=== PATIENT | female | born 2000 | race Caucasian/White ===

== ENCOUNTER 2019-07-19 23:13 | Inpatient (IN) ==
[2019-07-20] MEDS ORDERED: miSOPROStoL 50 MCG TAB PO ONE ×2 (00:22→04:15)
[2019-07-20] MEDS ORDERED: OXYTOCIN 30 UNITS/500 ML BAG IV PRN ×3 (00:22→17:48)
[2019-07-20] MEDS: LACTATED RINGER'S 1,000 ML IV PRN ×3 (00:38→12:51)
[2019-07-20 00:46] LABS: Hematocrit (blood only) 32.5 % (37-47); Hemoglobin 11.5 g/dL (12.0-16.0); Mean Corpuscular Hemoglobin 33.7 pg (25-34); Mean Corpuscular Volume 95.3 fL (80-100); Mean Platelet Volume 10.2 fL (7.4-10.4); Platelet Count 319 K/uL (130-400); RDW Coefficient of Variation 13.6 % (11.5-14.5); RDW Standard Deviation 47.4 fL (36.4-46.3); Red Blood Count 3.41 M/uL (4.2-5.4); White Blood Count 6.06 K/uL (4.8-10.8)
[2019-07-20 01:00] LABS: Mean Corpuscular Hgb Conc 35.4 g/dL (32-36)
[2019-07-20] MEDS ORDERED: PENICILLIN G POTASSIUM 6 MU in DEXTROSE 5% 250 ML IV STA (01:03)
--- NOTE | 2019-07-20 01:04 | History and Physical Report ---
DATE OF ADMISSION: 07/20/2019 CHIEF COMPLAINT: Contractions, intrauterine at 41+ weeks gestation. HISTORY OF PRESENT ILLNESS: The patient is a 1, para 0. She has had an uneventful course. She is 41 weeks 3 days. She has missed a number of appointments. She has not been seen in the office in over 2 weeks. She is a relatively poor historian. She has also skipped other appointments at times, presently complaining of abdominal pain and contractions for about the past 24 hours. She called the answering service and was told to come to the hospital for evaluation. ALLERGIES: No known drug allergies. PAST SURGICAL HISTORY: No previous surgery. PAST MEDICAL HISTORY: No history of rheumatic fever, heart disease, heart murmur, diabetes, tuberculosis. SOCIAL HISTORY: No smoking, no alcohol intake. She is a [id number] person. FAMILY HISTORY: Mom is 40 in good health. Father 50 in good health. One brother and one sister in good health. REVIEW OF SYSTEMS: HEAD: No symptoms of frequent or severe headaches. EYES: No symptoms of blurred vision, double vision. EARS: No symptoms of frequent ear infection, difficulty hearing. NOSE: No symptoms of frequent nosebleeds, difficulty breathing through her nose. THROAT: No symptoms of frequent or severe sore throat, difficulty swallowing. RESPIRATORY SYSTEM: No history of asthma, chest pain, shortness of breath. PHYSICAL EXAMINATION: GENERAL: Well-developed, well-nourished, 19-year-old white female, alert, oriented x3 and cooperative in no acute distress, appears stated age. EYES: Conjunctivae are pink. Sclerae white, no evidence of jaundice. EARS: Had normal light reflex bilaterally. NOSE: Had normal mucosa. Septum is midline. There were no polyps. THROAT: Had no erythema or evidence of infection. Teeth are in good state of repair. HEART: Regular rhythm. S1, S2 are normal. BREASTS: Normal. ABDOMEN: Soft and nontender. Estimated weight of only about 7 pounds. PELVIC: Vertex presentation. Cervix posterior, about 90% effaced, 1.5 cm dilated. Membranes were bulging slightly. MUSCULOSKELETAL: Revealed no calf tenderness. IMPRESSIONS OF THIS CASE: The patient is a poor historian, is not reliable in keeping her visits, 41+ weeks gestation, post-term , early labor.
[2019-07-20 02:09] LABS: Appearance Urine Cloudy (Clear); Bacteria Urine Automated Negative (Negative); Bilirubin Urine Negative (Negative); Blood Urine 2+ (Negative); Color Urine Dark Yellow; Glucose Urine UA Trace (Negative); Ketones Urine Trace (Negative); Leukocyte Esterase Urine Trace (Negative); Nitrite Urine Negative (Negative); Protein Urine 4+ (Negative); RBC Urine Automated >30 /hpf (0-4); Specific Gravity Urine 1.033 (1.000-1.030); Urobilinogen Urine Negative (Negative); WBC Urine Automated >30 /hpf (0-5); pH Urine 6.5 (4.5-7.5)
[2019-07-20 02:24] LABS: Mucus Urine Present (None Prsent)
[2019-07-20 02:26] LABS: Cast Urine Automated 0 /lpf (0-5)
[2019-07-20] MEDS: PENICILLIN G POTASSIUM 3 MU in DEXTROSE 5% 100 ML IV PRN ×3 (05:01→12:57)
--- NOTE | 2019-07-20 08:49 | Obstetrical Progress Note ---
Date of Service July 20, 2019 Assessment & Plan Admission and Anticipated Discharge Date Admission Date: July 20, 2019 Subjective Doing well Induction for post dates Ctx -12mins on Cytotec CAT1 EFW by Clifford; 7-8lbs Results & Data ([facility]) Vital Signs (Past 12 Hours) Vital Signs Temp Pulse Resp BP 07/20/19 07:12 36.7 C 63 20 122/80 07/20/19 03:39 37.0 C 18 07/20/19 03:38 79 129/72 07/19/19 23:40 95 H 131/85 07/19/19 23:35 37.1 C 18
[2019-07-20] MEDS ORDERED: ATROPINE SULFATE 0.1 MG/ML 10ML SYR IV PRN (11:12)
[2019-07-20] MEDS ORDERED: ONDANSETRON INJ 2 MG/ML 2 ML VIAL IV PRN ×2 (11:12→14:51)
[2019-07-20] MEDS ORDERED: fentaNYL citrate 100 MCG/2 ML VIAL IV PRN (11:12)
[2019-07-20] MEDS ORDERED: ePHEDrine sulfate 50 MG/ML AMP IV PRN ×2 (11:12→14:51)
[2019-07-20] MEDS ORDERED: HYDROmorphone INJ 2 MG/ML SYR/VIAL IV PRN (11:12)
[2019-07-20] MEDS ORDERED: BUTORPHANOL TARTRATE 1 MG/ML VIAL IV PRN (12:54)
[2019-07-20] MEDS ORDERED: fentaNYL citrate 100 MCG/2 ML VIAL ONE (13:44)
[2019-07-20] MEDS ORDERED: BUPIVACAINE 0.25% 30 ML VIAL ONE (13:44)
[2019-07-20] MEDS ORDERED: ePHEDrine sulfate 50 MG/ML AMP ONE (13:44)
[2019-07-20] MEDS ORDERED: fentaNYL 2MCG/ML ROPIV 1.25MG/ML 100 ML BAG EPI ONE (13:45)
--- NOTE | 2019-07-20 14:06 | Anesthesiology Consultation ---
Date of Service July 20, 2019 Assessment & Plan (1) Encounter for pre-operative examination: Chart Review Chart Review: Patient NOT seen in Pre Admission Testing and Acceptable Risk for Labor Epidural Consults Requested none ASA ASA2 Proposed Anesthesia Anesthesia Type: Labor Epidural Risk / Benefits Reviewed With: PT / POA / Parent / Guardian, Accepts Plan and Informed Consent Obtained History Height/Weight Height: 5 ft 9 in Weight: 95.254 kg Allergies Allergy/AdvReac Type Severity Reaction Status Date / Time No Known Allergies Allergy Unverified 07/19/19 23:25 Medications Home Medications Medication Instructions Recorded Confirmed Last Taken PNV cmb#95-ferrous fumarate-FA 1 tab PO DAILY 07/19/19 07/19/19 07/19/19 08:00 [] ferrous sulfate [Iron (ferrous 325 mg PO BID 07/19/19 07/19/19 07/19/19 08:00 sulfate)] Active Medications Generic Name Dose Route Start Last Admin Trade Name Freq PRN Reason Stop Dose Admin Lactated Ringer's 1,000 mls @ 125 mls/hr 07/20/19 00:22 07/20/19 12:51 Lr IV 07/22/19 00:21 125 mls/hr .Q8H PRN Administration L&D Protocol Protocol Penicillin G Potassium 3 mu/ 106 mls @ 100 mls/hr 07/20/19 01:03 07/20/19 12:57 Dextrose IV 07/30/19 01:02 100 mls/hr Q4H PRN Administration Give until delivery NPO Date Last Intake of Fluids: 07/20/19 Time Last Intake of Fluids: 14:50 Date Last Intake of Solids: 07/19/19 Time Last Intake of Solids: 16:00 Past Medical History Medical History Development disorder, language Hirschsprung's disease Incontinence, feces Nocturnal enuresis Prurigo Undiagnosed cardiac murmurs Exercise / Class Metabolic Activity III < 4 Walking/Shop/Light housework Past Anesthesia History No Hx of Anesthesia Complications History of PONV No Hx of PONV Social History Smoking Status: Never smoker Hx Alcohol Use: No Hx Substance Use: No Review of Systems Patient denies history of abnormal bleeding or bleeding disorder. Patient denies active use of anticoagulants other than low dose aspirin. Patient denies numbness, tingling or weakness in lower extremities. Physical Exam Vital Signs Last Vital Signs Temp 36.7 C 07/20/19 07:12 Pulse 84 07/20/19 14:47 Resp 20 07/20/19 07:12 BP 95/53 L 07/20/19 14:47 Pulse Ox 98 07/20/19 14:46 Constitutional not obese (Gravid uterus) ENMT Mouth: no TMJ abnormality and oral opening not small Thyromental Distance: > or= 3.5 Finger Breadths Mallampati Class: III Neck normal visual inspection; neck extension not limited Respiratory normal respiratory effort Auscultation: lungs clear to auscultation bilaterally Cardiovascular Rate/Rhythm: regular rate and regular rhythm Heart Sounds: no murmur Neurologic moves all extremities Motor/Sensory: no sensory deficit Psychiatric Orientation: alert and oriented x 3 Testing Laboratory Results 07/20/19 00:32 Urine Color Dark Yellow 07/20/19 01:35 Urine Appearance Cloudy (Clear) A 07/20/19 01:35 Urine pH 6.5 (4.5-7.5) 07/20/19 01:35 Ur Specific [place] 1.033 (1.000-1.030) H 07/20/19 01:35 Urine Protein 4+ (Negative) H 07/20/19 01:35 Urine Glucose (UA) Trace (Negative) H 07/20/19 01:35 Urine Ketones Trace (Negative) H 07/20/19 01:35 Urine Nitrite Negative (Negative) 07/20/19 01:35 Ur Leukocyte Esterase Trace (Negative) H 07/20/19 01:35 Urine WBC (Auto) >30 /hpf (0-5) H 07/20/19 01:35 Urine RBC (Auto) >30 /hpf (0-4) H 07/20/19 01:35 U Hyaline Cast (Auto) 0 /lpf (0-5) 07/20/19 01:35 U Epithel Cells (Auto) 10-20 /lpf (0-5) H 07/20/19 01:35 Urine Bacteria (Auto) Negative (Negative) 07/20/19 01:35
[2019-07-20] MEDS ORDERED: NALOXONE HCL 0.4 MG/1 ML VIAL/CARP IV PRN (14:51)
[2019-07-20] MEDS ORDERED: fentaNYL 2MCG/ML ROPIV 1.25MG/ML 100 ML BAG EPI PRN (14:51)
[2019-07-20] MEDS ORDERED: NALBUPHINE HCL INJ 10 MG/ML AMP IV PRN (14:51)
[2019-07-20] MEDS ORDERED: NALOXONE HCL 1 MG in SODIUM CHLORIDE 0.9% 1000ML 1,000 ML IV PRN (14:51)
[2019-07-20] MEDS ORDERED: DiphenhydrAMINE HCL 50 MG/ML VIAL IV PRN (14:51)
--- NOTE | 2019-07-20 15:04 | Obstetrical Progress Note ---
Date of Service July 20, 2019 Assessment & Plan Admission and Anticipated Discharge Date Admission Date: July 20, 2019 Subjective Pt doing well Epidural analgesia in place and pt is comfortable Review of strip shows fetus had a change in baseline that has improved with positioning change VE; 10/100/0 station Ctx; 2-4mins Pitocin and Stadol were never given or started Results & Data ([facility]) Vital Signs (Past 12 Hours) Vital Signs Temp Pulse Resp BP Pulse Ox 07/20/19 14:58 102/60 07/20/19 14:56 69 97 07/20/19 14:53 73 106/57 L 07/20/19 14:51 65 108/63 99 07/20/19 14:49 73 109/64 07/20/19 14:47 84 95/53 L 07/20/19 14:46 74 98 07/20/19 14:45 69 100/57 L 07/20/19 14:43 66 95/52 L 07/20/19 14:41 66 98 07/20/19 14:37 78 116/74 07/20/19 14:36 79 100 07/20/19 14:35 75 120/76 07/20/19 14:31 71 100 07/20/19 14:29 73 92 07/20/19 14:26 62 98 07/20/19 14:21 60 98 07/20/19 14:18 86 92 07/20/19 14:16 65 100 07/20/19 14:12 68 91 07/20/19 14:11 67 94 07/20/19 14:10 60 126/73 07/20/19 14:06 77 76 L 07/20/19 14:01 73 97 07/20/19 11:17 62 107/65 07/20/19 07:12 36.7 C 63 20 122/80 07/20/19 03:39 37.0 C 18 07/20/19 03:38 79 129/72
[2019-07-20] MEDS ORDERED: METHYLERGONOVINE MALEATE 0.2 MG/ML AMP ONE (17:36)
[2019-07-20] MEDS ORDERED: miSOPROStoL 200 MCG TAB ONE (17:36)
[2019-07-20] MEDS ORDERED: METHYLERGONOVINE MALEATE 0.2 MG/ML AMP IM ONE (17:48)
[2019-07-20] MEDS ORDERED: HYDROCORTISONE ACETATE 25 MG SUPP PR PRN (17:48)
[2019-07-20] MEDS ORDERED: IBUPROFEN 600 MG TAB PO PRN (17:48)
[2019-07-20] MEDS ORDERED: SUPERCREAM 0.870% 15 GM JAR EXT PRN (17:48)
[2019-07-20] MEDS ORDERED: BENZOCAINE 20% AER SPR 82.5 GM CAN EXT PRN (17:48)
[2019-07-20] MEDS ORDERED: bisacodyL 10 MG SUPP PR PRN (17:48)
[2019-07-20] MEDS ORDERED: DIPHTHERIA/TETANUS/PERTUSSIS 0.5 ML SYR/VIAL IM ONE (17:48)
[2019-07-20] MEDS ORDERED: ACETAMINOPHEN 325 MG TAB PO PRN (17:48)
[2019-07-20] MEDS ORDERED: miSOPROStoL 200 MCG TAB PR ONE (17:48)
[2019-07-20 18:01] LABS: Base Excess Cord Venous Blood -4.7 mEq/L (-7.7-1.9); Cord Venous Blood HCO3 21 mmol/L (18.4-26.8); Cord Venous Blood PCO2 42 mmHg (30.4-57.2); Cord Venous Blood PO2 33 mmHg (14.1-43.3); Cord Venous Blood pH 7.32 (7.20-7.44)
[2019-07-20 18:02] LABS: Base Excess Cord Arterial Bld -7.3 mEq/L (-9-1.8); CO2 Cord Arterial Blood 67 mmHg (39.1-73.5); HCO3 Cord Arterial Blood 23 mmol/L (19.7-28.5); Oxygen Sat Cord Arterial Blood < 60.0 % (<60); PO2 Cord Arterial Blood 16 mmHg (4.1-31.7); pH Cord Arterial Blood 7.15 (7.1-7.38)
--- NOTE | 2019-07-20 18:48 | Delivery Summary ---
DATE OF OPERATION: 07/20/2019 The patient delivered a live infant male in left occiput anterior presentation. There was nuchal cord which was easily reduced. Infant was delivered, placed on mother's abdomen and cord clamped and cut. Infant's was 4, 8. Resuscitation was performed using the pediatric record. Cord blood was obtained. Cord gas was obtained. Placenta spontaneously delivered. Inspection of placenta shows normal grossly looking placenta. Placenta sent to pathology for pathological analysis. Inspection of the perineum showed a second-degree laceration which was repaired in layers with Vicryl stitch. Rectal exam post repair showed good sphincter tone. ESTIMATED BLOOD LOSS: 150 mL. Baby and mother are doing well in recovery. All instruments were removed from the vagina and accounted for x2 including sponges, needles and retractors. I attest to the content of the Intraoperative Record and any orders documented therein. Any exception s are noted below.
[2019-07-20] MEDS: DOCUSATE SODIUM 100 MG CAP PO SCH (21:08)
--- NOTE | 2019-07-20 21:40 | Anesthesia Procedure Note ---
Date of Service July 20, 2019 Anesthesia Post Epidural Note Vital Signs Vital Signs: Temp Pulse Resp BP Pulse Ox 37.0 C 75 20 129/82 100 07/20/19 16:29 07/20/19 19:44 07/20/19 16:29 07/20/19 19:44 07/20/19 17:41 Notes Mental Status: alert / awake / arousable and participated in evaluation Nausea / Vomiting: adequately controlled Pain: adequately controlled Airway Patency, RR, SpO2: stable & adequate BP & HR: stable & adequate Hydration State: stable & adequate Neuraxial Anesthesia: was administered and sensory block is resolving Anesthetic Complications: no major complications apparent and Pt Satisfied with anesthetic care Epidural: Removed without complications and With tip intact
[2019-07-21 03:10] LABS: 7-Aminoclonazepam DNR ng/mL (<25); Alpha-Hydroxyalprazolam DNR ng/mL (<25); Alphahydroxymidazolam DNR ng/mL (<50); Alphahydroxytriazolam DNR ng/mL (<50); Amobarbital DNR ng/mL (<100); Amphetamines, Ur NEGATIVE ng/mL (<500); Amphetemines Ur GC/MS DNR ng/mL (<250); Barbiturates, Urine NEGATIVE ng/mL (<300); Benzodiazepines,Ur NEGATIVE ng/mL (<100); Butalbital DNR ng/mL (<100); Cocaine, Urine NEGATIVE ng/mL (<150); Cocaine,Ur GC/MS DNR ng/mL (<100); Codeine DNR ng/mL (<50); Confirmatory Facility DNR; EDDP DNR ng/mL (<100); Hydrocodone DNR ng/mL (<50); Hydromorphone DNR ng/mL (<50); Hydroxyethylflurazepam DNR ng/mL (<50); Lorazepam DNR ng/mL (<50); Methadone, Ur GC/MS NEGATIVE ng/mL (<100); Methadone, Urine DNR ng/mL (<100); Methamphetamine DNR ng/mL (<250); Morphine DNR ng/mL (<50); Norhydrocodone DNR ng/mL (<50); Noroxycodone DNR ng/mL (<50); Opiates, Urine NEGATIVE ng/mL (<100); Oxycodone,Ur Screen NEGATIVE ng/mL (<100); Pentobarbital DNR ng/mL (<100); Phencyclidine, Ur NEGATIVE ng/mL (<25); Phencyclidine,Ur GC/MS DNR ng/mL (<25); Secobarbital DNR ng/mL (<100); THC20, Qual, Urine NEGATIVE ng/mL (<20); Temazepam DNR ng/mL (<50); Tetrahydrocannabinol DNR ng/mL (<5)
[2019-07-21 07:38] LABS: Hematocrit (blood only) 29.6 % (37-47); Hemoglobin 10.3 g/dL (12.0-16.0); Mean Corpuscular Hemoglobin 33.6 pg (25-34); Mean Corpuscular Hgb Conc 34.8 g/dL (32-36); Mean Corpuscular Volume 96.4 fL (80-100); Mean Platelet Volume 10.6 fL (7.4-10.4); Platelet Count 220 K/uL (130-400); RDW Coefficient of Variation 13.9 % (11.5-14.5); RDW Standard Deviation 48.3 fL (36.4-46.3); Red Blood Count 3.07 M/uL (4.2-5.4); White Blood Count 9.36 K/uL (4.8-10.8)
--- NOTE | 2019-07-21 09:33 | Obstetrical Progress Note ---
Date of Service July 21, 2019 Assessment & Plan Admission and Anticipated Discharge Date Admission Date: July 20, 2019 Subjective PPD#1 stable out of bed tolerating diet not passing gas yet Physical Exam Constitutional: WD/WN, vitals as above comfortable abdomen soft and non- tender no edema neg Jailyn's tent d/c in AM discharge planning consult as patient seems a little slow Results & Data ([place]) Vital Signs (Past 12 Hours) Vital Signs Temp Pulse Resp BP Pulse Ox 07/21/19 07:50 36.9 C 78 18 105/70 97 07/21/19 03:50 37.1 C 71 16 108/70 99 07/20/19 23:15 36.7 C 82 18 105/72 98 Laboratory Results Laboratory Results - last 72 hr 07/20/19 07/20/19 07/20/19 00:32 01:35 09:45 WBC 6.06 RBC 3.41 L Hgb 11.5 L Hct 32.5 L MCV 95.3 MCH 33.7 MCHC 35.4 RDW Std Deviation 47.4 H RDW Coeff of Flor 13.6 Plt Count 319 MPV 10.2 Cord ABG pH Cord ABG pCO2 Cord ABG pO2 Cord ABG HCO3 Cord ABG Base Excess Cord ABG O2 Sat Cord VBG pH Cord VBG pCO2 Cord VBG pO2 Cord VBG HCO3 Cord VBG Base Excess Cord VBG O2 Sat Barometric Pressure Blood Gas Comments Urine Color Dark Yellow Urine Appearance Cloudy A Urine pH 6.5 Ur Specific [place] 1.033 H Urine Protein 4+ H Urine Glucose (UA) Trace H Urine Ketones Trace H Urine Blood 2+ H Urine Nitrite Negative Urine Bilirubin Negative Urine Urobilinogen Negative Ur Leukocyte Esterase Trace H Urine WBC (Auto) >30 H Urine RBC (Auto) >30 H U Hyaline Cast (Auto) 0 U Epithel Cells (Auto) 10-20 H Urine Bacteria (Auto) Negative Urine Mucus Present A Ur Butalbital Confirm DNR Urine Opiates Screen NEGATIVE U Codeine Confrm GC/MS DNR Ur Morphine (GC/MS) DNR Ur Hydrocodone (GC/MS) DNR U Norhydrocodone Conf DNR Ur Oxycodone Screen NEGATIVE U Noroxycodone Confirm DNR Ur Oxycodone GC/MS DNR U Oxymorphone GC/MS DNR EDDP Confirm DNR Ur Methadone, Qual DNR Ur Methadone NEGATIVE Ur Hydromorphone (GC/MS) DNR Urine Barbiturates NEGATIVE Ur Phencyclidine Scrn NEGATIVE Urine PCP Confirm DNR Ur Amphetamines Screen NEGATIVE U Amphetamines Confirm DNR Methamphetamine GC/MS DNR Ur Amobarbital GC/MS DNR U Pentobarbital GC/MS DNR U Phenobarbital GC/MS DNR U Secobarbital GC/MS DNR U [id number] GC/MS DNR U Benzodiazepines Scrn NEGATIVE U 7-Aminoclonazepam Screen DNR Ur Nordiazepam GC/MS DNR U [place]-ethylfluraz GC/MS DNR U Lorazepam Cnf GC/MS DNR U Oxazepam Confm GC/MS DNR Ur Temazepam Cnf GC/MS DNR U a-Hydroxytriaz GC/MS DNR U [id number] Com DNR Urine Cocaine NEGATIVE U Cocaine Metab Confirm DNR Tetrahydrocannabinol DNR U Marijuana (THC) Screen NEGATIVE Drug Screen Comment SEE NOTE Reference Lab DNR 07/20/19 07/20/19 07/21/19 17:17 17:17 06:40 WBC 9.36 RBC 3.07 L Hgb 10.3 L Hct 29.6 L MCV 96.4 MCH 33.6 MCHC 34.8 RDW Std Deviation 48.3 H RDW Coeff of Flor 13.9 Plt Count 220 MPV 10.6 H Cord ABG pH 7.15 Cord ABG pCO2 67 Cord ABG pO2 16 Cord ABG HCO3 23 Cord ABG Base Excess -7.3 Cord ABG O2 Sat < 60.0 Cord VBG pH 7.32 Cord VBG pCO2 42 Cord VBG pO2 33 Cord VBG HCO3 21 Cord VBG Base Excess -4.7 Cord VBG O2 Sat 69.0 H Barometric Pressure 730.3 730.5 Blood Gas Comments MARCELINO MARCELINO Urine Color Urine Appearance Urine pH Ur Specific [place] Urine Protein Urine Glucose (UA) Urine Ketones Urine Blood Urine Nitrite Urine Bilirubin Urine Urobilinogen Ur Leukocyte Esterase Urine WBC (Auto) Urine RBC (Auto) U Hyaline Cast (Auto) U Epithel Cells (Auto) Urine Bacteria (Auto) Urine Mucus Ur Butalbital Confirm Urine Opiates Screen U Codeine Confrm GC/MS Ur Morphine (GC/MS) Ur Hydrocodone (GC/MS) U Norhydrocodone Conf Ur Oxycodone Screen U Noroxycodone Confirm Ur Oxycodone GC/MS U Oxymorphone GC/MS EDDP Confirm Ur Methadone, Qual Ur Methadone Ur Hydromorphone (GC/MS) Urine Barbiturates Ur Phencyclidine Scrn Urine PCP Confirm Ur Amphetamines Screen U Amphetamines Confirm Methamphetamine GC/MS Ur Amobarbital GC/MS U Pentobarbital GC/MS U Phenobarbital GC/MS U Secobarbital GC/MS U [id number] GC/MS U Benzodiazepines Scrn U 7-Aminoclonazepam Screen Ur Nordiazepam GC/MS U [place]-ethylfluraz GC/MS U Lorazepam Cnf GC/MS U Oxazepam Confm GC/MS Ur Temazepam Cnf GC/MS U a-Hydroxytriaz GC/MS U [id number] Com Urine Cocaine U Cocaine Metab Confirm Tetrahydrocannabinol U Marijuana (THC) Screen Drug Screen Comment Reference Lab
[2019-07-21] MEDS: PRENATAL VITAMIN 1 TAB PO SCH (10:42)
[2019-07-21] MEDS: DOCUSATE SODIUM 100 MG CAP PO SCH ×2 (10:42→20:46)
[2019-07-21] MEDS ORDERED: bisacodyL 5 MG TABEC PO SCH (20:00)
[2019-07-22 06:50] LABS: Hematocrit (blood only) 29.3 % (37-47)
--- NOTE | 2019-07-22 08:18 | Obstetrical Progress Note ---
Date of Service July 22, 2019 Assessment & Plan (1) Normal course: PPd #2 pt doing well Anticipoate disch this AM Subjective Ambulation: ambulating normally Voiding: no voiding problems Passing Gas:: Yes Diet Tolerance:: regular diet Lochia:: Small Feeding Type:: breast feeding Review of Systems All systems reviewed & are unremarkable except as noted in HPI & below Physical Exam Constitutional WD/WN, vitals as above well developed and well nourished Eyes PERRL, conjunctivae normal, anicteric sclerae Neck trachea midline, no thyromegaly Respiratory normal respiratory effort, lungs clear to auscultation Auscultation: no crackles, no rales and no wheezes Cardiovascular RRR, no murmur, no edema Gastrointestinal (Abdomen) normal bowel sounds, soft, nontender, no hepatosplenomegaly Uterus is below umbilicus Musculoskeletal no cyanosis or clubbing, extremities motor strength 5/5 Skin no rashes, warm and dry Neurologic patellar DTR's 2+ bilat, sensation intact Psychiatric A+Ox3, euthymic affect Genitourinary normal external appearance Results & Data Vital Signs (Past 12 Hours) Vital Signs Temp Pulse Resp BP Pulse Ox 07/22/19 07:35 36.3 C L 80 16 125/79 97 07/21/19 23:30 36.7 C 91 H 18 120/82
[2019-07-22] MEDS: PRENATAL VITAMIN 1 TAB PO SCH (08:25)
[2019-07-22] MEDS: DOCUSATE SODIUM 100 MG CAP PO SCH (08:25)
== END 2019-07-22 11:32 | disposition home or self-care (01) | DRG 807 ==
LOC: OPB 23:13 → 4S1 23:18 → 4S2 07-20 20:56